=== PATIENT | female | born 1960 | race Caucasian/White ===

== ENCOUNTER → 2021-11-26 | Outpatient (CLI) | payer OTHER ==
--- NOTE | 2021-11-27 11:12 | PE ---
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 Images are reviewed on the computer in the coronal, ax ial, and sagittal planes. Reconstructed rotating images are created on independent workstation and r eviewed on the computer. A localization and attenuation correction CT is performed in conjunction w ith the PET scan. Blood glucose level equals 89. SCAN: Initial Scan FINDINGS: SKULL BASE AND NECK: No areas of abnormal hypermetabolic uptake. CHEST, MEDIASTINUM, AND HILAR REGION: No areas of abnormal hypermetabolic uptake. ABDOMEN AND PELVIS: Normal excretion is present. No areas of abnormal hypermetabolic uptake with par ticular attention to the cervix and vulva below the symphysis. Poorly visualized uterus. OSSEOUS STRUCTURES: No areas of abnormal hypermetabolic uptake. OTHER CT: Mild calcified plaque bilateral carotid bulb level. Mild emphysematous change with mild to moderate lower lung linear scarring. IMPRESSION: No areas of abnormal hypermetabolic uptake to suggest metastatic malignancy. Primary neop lasm is not well identified, correlate for complete surgical excision?
== END | disposition home or self-care (01) ==
LOC: RADPETMAIN 16:19
PROVIDERS: ATTEND Radiology Radiation Oncology
DX: C51.8 Malignant neoplasm of overlapping sites of vulva (principal)
CPT/HCPCS: 78815; A9552